=== PATIENT | male | born 1965 | race African-American/Black ===

== ENCOUNTER 2021-01-10 21:22 | Emergency (ER) | payer OTHER ==
[~2021-01-10] VITALS: Ht 172.7 cm; Wt 122.5 kg
[2021-01-10] MEDS ORDERED: LISINOPRIL-HCT1 EAC2 PO (21:37)
[2021-01-10] MEDS ORDERED: NORCO 10-325 T1 EACH PO (23:11)
[2021-01-10 23:20] VITALS: BP 144/93
== END 2021-01-10 23:21 | disposition home or self-care (01) ==
LOC: ER 21:22
DX: S39.012A Strain of muscle, fascia and tendon of lower back, initial encounter (principal); R07.81 Pleurodynia; I10 Essential (primary) hypertension; Z79.899 Other long term (current) drug therapy; V89.2XXA Person injured in unspecified motor-vehicle accident, traffic, initial encounter; Y93.89 Activity, other specified; Y92.89 Other specified places as the place of occurrence of the external cause; Y99.8 Other external cause status